=== PATIENT | female | born 1955 | race Caucasian/White ===

== ENCOUNTER 2017-06-06 08:25 | Day surgery (SDC) | payer BC ==
[2017-06-05 09:27] VITALS: BMI 46.4
[~2017-06-06 08:25] MED LIST: LACTATED RINGERS 1,000 ML IV SCH
[2017-06-06 09:06] VITALS: TEMP 98
[2017-06-06] MEDS ORDERED: LIDOCAINE 1% 20 ML VIAL (10MG/ML) FOR IV START INTRADERMA ONE (09:13)
[2017-06-06] MEDS ORDERED: fentaNYL (PF) 50 MCG/ML 2 ML AMP ONE (09:50)
[2017-06-06] MEDS ORDERED: PROPOFOL 10 MG/ML 20 ML VIAL IV ONE (09:50)
[2017-06-06] MEDS ORDERED: LIDOCAINE 1% INJ 10MG/ML (20 ML MDV) ONE (09:50)
[2017-06-06] MEDS ORDERED: MIDAZOLAM 2 MG/2 ML VIAL ONE (09:50)
--- NOTE | 2017-06-06 10:29 | P.PCN ---
Date of Procedure: 06/06/17 Procedure(s) Performed: Procedure: Colonoscopy and polypectomy. Preoperative diagnosis: Screening for neoplasia. Postoperative diagnosis: Small distal sigmoid polyp snared but no large polyps or cancer. Diverticulosis with no obvious diverticulitis or strictures. Internal hemorrhoids without bleeding at the time of this exam. Preparation: HalfLytely prep. Sedation: Was provided by anesthesia. Brief clinical history: The patient is a 61-year-old female who is scheduled for this evaluation for screening for neoplasia. She has history of polyps and her last exam was in September 2011. At this time, she has no abdominal complaints, bleeding or anemia. Procedure: With the patient on her left lateral decubitus position and after informed consent and adequate sedation, the perianal area was inspected and it did not show any fissures or fistulas. There were no masses felt on digital rectal examination. The Olympus CFQ 160L video colonoscope was then inserted in the rectum in the usual fashion and advanced to the cecum. There was 1 small polyp in the distal sigmoid which I snared and retrieved by suction, but there were no large polyps or cancer. Several diverticular orifices were seen scattered in the sigmoid and left colon and there was a rare orifice around the hepatic flexure and on the right side with no evidence of acute diverticulitis or strictures. The mucosa appeared healthy. I retroflexed the endoscope in the rectum before the endoscope was withdrawn. Grade 2 internal hemorrhoids were noted with no evidence of bleeding. The patient tolerated the procedure well. Plan: The patient was reassured. Discussed dietary measures and local care for hemorrhoids. She will follow-up with you as planned and I recommended repeat exam in 5 years.
[2017-06-06 10:52] VITALS: BP 119/79; PULSE 70; RESP 18
== END 2017-06-06 11:02 | disposition home or self-care (01) ==
LOC: ORWHC2ENDO 08:25
DX: K63.5 Polyp of colon (principal); Z12.11 Encounter for screening for malignant neoplasm of colon; K63.4 Enteroptosis; I10 Essential (primary) hypertension; Z79.899 Other long term (current) drug therapy; Z88.6 Allergy status to analgesic agent; Z88.0 Allergy status to penicillin; Z88.2 Allergy status to sulfonamides
CPT/HCPCS: 88305; 45385; J2250; J2001; J3010; J2704

== ENCOUNTER → 2017-09-08 | Outpatient (CLI) | payer BC ==
--- NOTE | 2017-09-12 09:15 | MM ---
Reason for exam: screening (asymptomatic). Last mammogram was performed 1 year and 1 month ago. History: Patient is postmenopausal. Took estrogen for 7 years. Physical Findings: A clinical breast exam by your physician is recommended on an annual basis and results should be correlated with mammographic findings. MG Screening Mammo w CAD Bilateral CC and MLO view(s) were taken. Prior study comparison: August 01, 2016, bilateral MG screening mammo w CAD. July 30, 2015, bilateral MG screening mammo w CAD. There are scattered fibroglandular densities. No suspicious abnormality. No significant changes when compared with prior studies. ASSESSMENT: Negative, BI-RAD 1 RECOMMENDATION: Routine screening mammogram of both breasts in 1 year.
== END | disposition home or self-care (01) ==
LOC: RADMAMWWP 15:56
PROVIDERS: ATTEND Family Medicine
DX: Z12.31 Encounter for screening mammogram for malignant neoplasm of breast (principal)

== ENCOUNTER → 2018-10-09 | Outpatient (CLI) | payer BC ==
--- NOTE | 2018-10-11 14:25 | MM ---
Reason for exam: screening (asymptomatic). Last mammogram was performed 1 year and 1 month ago. History: Patient is postmenopausal. Took estrogen for 7 years. MG Screening Mammo w CAD Bilateral CC and MLO view(s) were taken. Prior study comparison: September 08, 2017, bilateral MG screening mammo w CAD. August 01, 2016, bilateral MG screening mammo w CAD. There are scattered fibroglandular densities. There are stable right breast calcifications. Chronic nodularity in the right breast. No significant changes when compared with prior studies. ASSESSMENT: Benign, BI-RAD 2 RECOMMENDATION: Routine screening mammogram of both breasts in 1 year.
== END | disposition home or self-care (01) ==
LOC: RADMAMWWP 07:55
PROVIDERS: ATTEND Family Medicine
DX: Z12.31 Encounter for screening mammogram for malignant neoplasm of breast (principal)
CPT/HCPCS: 77067

== ENCOUNTER → 2019-01-09 | Outpatient (CLI) | payer BC ==
--- NOTE | 2019-01-09 09:09 | CT ---
EXAMINATION TYPE: CT urogram wo/w con DATE OF EXAM: 01/09/2019 HISTORY: Gross hematuria CT DLP: 3952mGycm Automated Exposure Control for Dose Reduction was Utilized. CONTRAST: CT scan of the abdomen and pelvis is performed without oral and without and with IV Contrast, patient injected with 100 mL of Isovue 300. Urogram protocol with 3-D reconstructed images created on an [employer] workstation and reviewed. COMPARISON: None FINDINGS: KUB: Noncontrast images show no renal calculi bilaterally. Postcontrast images show symmetric cortica l medullary uptake and excretion from both kidneys without evidence of concerning solid or cystic valerie al mass or hydronephrosis appreciated bilaterally. Visualized portion of right and left ureter show n o obvious mass or calculus. There is incomplete contrast opacification of the left ureter noted. Eval uation of pelvic structures is suboptimal due to artifact from adjacent metallic hardware from right hip surgery. Visualized portion of bladder is poorly distended seen best delayed coronal image 84. No obvious mass. It is however suboptimally evaluated. LUNG BASES: No significant abnormality is appreciated. LIVER/GB: Noncontrast images show liver hypodense relative to spleen consistent with diffuse fatty in filtration. There are multiple small calcified gallstones dependently in gallbladder. PANCREAS: No significant abnormality is seen. SPLEEN: No significant abnormality is seen. ADRENALS: There is left adrenal nodule or mass measuring roughly 1.3 x 1.0 cm axial image 31 series 6 . Hounsfield units average [address] There is enhancement to 46 on initial postcontrast i mages with washout to 26 on roughly 10 minute delayed images. Significant washout and small size are consistent with benign lipid rich adenoma. BOWEL: Evaluation of bowel slightly suboptimal secondary to lack of enteric contrast. There is mild w all thickening in the transverse colon presumed product of poor distention. There are some diverticul a in the left and sigmoid colon. No CT evidence for acute diverticulitis. No suspicious small or larg e bowel dilatation. UTERUS/ADNEXA: Uterus is poorly seen due to metallic right hip hardware, it may be surgically absent. A few scattered pelvic phleboliths are present. LYMPH NODES: No greater than 1cm abdominal or pelvic lymph nodes are appreciated. Prominent but subce ntimeter bilateral groin lymph nodes are incidentally seen. OSSEOUS STRUCTURES: Facet arthropathy lower lumbar spine. Mild multilevel spurring in the visualized thoracic spine. Scattered hemangiomas and thoracic spine are present. Metallic Right hip arthroplasty causes streak artifact limiting evaluation of pelvic structures [id number] te narrowing with acetabular subchondral cystic change left hip is noted. OTHER: No significant additional abnormality is seen. IMPRESSION: Suboptimal evaluation of distal ureters and bladder without obvious finding to account fo r patient's symptoms of hematuria. If symptoms persist consider further investigation with cystoscopy and possible retrograde urogram.
== END | disposition home or self-care (01) ==
LOC: RADCTMAIN 06:29
PROVIDERS: ATTEND Urology
DX: R31.0 Gross hematuria (principal); Z88.0 Allergy status to penicillin; Z88.2 Allergy status to sulfonamides; Z88.6 Allergy status to analgesic agent
CPT/HCPCS: 74178; 74400; Q9967

== ENCOUNTER → 2019-10-10 | Outpatient (CLI) | payer BC ==
--- NOTE | 2019-10-11 12:18 | MM ---
Reason for exam: screening (asymptomatic). Last mammogram was performed 1 year ago. History: Patient is postmenopausal and history of other cancer. Took estrogen for 7 years. Physical Findings: A clinical breast exam by your physician is recommended on an annual basis and results should be correlated with mammographic findings. MG Screening Mammo w CAD Bilateral CC and MLO view(s) were taken. Prior study comparison: October 09, 2018, bilateral MG screening mammo w CAD. September 08, 2017, bilateral MG screening mammo w CAD. There are scattered fibroglandular densities. Benign appearing bilateral calcifications. No suspicious abnormality. Stable right lateral middle depth asymmetry. No significant changes when compared with prior studies. ASSESSMENT: Benign, BI-RAD 2 RECOMMENDATION: Routine screening mammogram of both breasts in 1 year.
== END | disposition home or self-care (01) ==
LOC: RADMAMWWP 07:06
PROVIDERS: ATTEND Family Medicine
DX: Z12.31 Encounter for screening mammogram for malignant neoplasm of breast (principal)
CPT/HCPCS: 77067